=== PATIENT | female | born 1950 | race American Indian/Alaskan Native ===

== ENCOUNTER 2018-07-22 09:30 | Inpatient (IN) | payer MEDICARE ==
[2018-07-22 11:07] LABS: Basophils # (Auto) 0.1 K/mm3 (0.0-0.1); Basophils % (Auto) 0.8 % (0.0-1.8); Eosinophils # (Auto) 0.1 K/mm3 (0.0-0.4); Eosinophils % (Auto) 1.1 % (0.0-4.3); Hematocrit 41.3 % (30.3-42.9); Hemoglobin 13.9 gm/dl (10.1-14.3); Lymphocytes # (Auto) 1.4 K/mm3 (1.2-5.4); Lymphocytes % (Auto) 23.8 % (13.4-35.0); Mean Corpuscular HGB Conc 34 % (30-34); Mean Corpuscular Volume 95 fl (79-97); Monocytes # (Auto) 0.6 K/mm3 (0.0-0.8); Monocytes % (Auto) 10.6 % (0.0-7.3); Platelet Count 333 K/mm3 (140-440); Red Blood Count 4.37 M/mm3 (3.65-5.03); Red Cell Distribution Width 13.3 % (13.2-15.2)
--- NOTE | 2018-07-22 12:47 | Emergency Department Report ---
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 Symptoms exacerbated with exertion. Patient denies chest pain, calf tenderness, leg edema, recent travel, history of PE/DVT, cough, fever, nausea, vomiting, or diarrhea. Patient's primary care doctor is Dr. Jose Adler. She follows up every 3 months. She states her blood pressure is elevated sometimes she is not currently on medication. She denies any known history of kidney failure. She attempted to see her primary care doctor today but was diverted to the ER based on her symptoms. Patient states she will longer smokes cigarettes. We called Dr. Jose Adler's office and attempt to get previous creatinine values. They state that after medical record review could not find any evidence that the patient had been seen in their office previously. Severity scale (0 -10): 3 - Related Data Allergies Allergy/AdvReac Type Severity Reaction Status Date / Time No Known Allergies Allergy Unverified 07/22/18 09:33 ED Review of Systems ROS: Stated complaint: ABD PAIN Other details as noted in HPI Comment: All other systems reviewed and negative ED Past Medical Hx - Past Medical History Previous Medical History?: No Additional medical history: [place] - Surgical History Past Surgical History?: Yes Additional Surgical History: Lung surgery. Hysterectomy - Social History Smoking Status: Never Smoker Substance Use Type: None ED Physical Exam - General Limitations: No Limitations - Other Other exam information: General: No limitations, patient is alert in no acute distress Head exam: Atraumatic, normocephalic Eyes exam: Normal appearance, pupils equal reactive to light, extraocular movements intact ENT: Moist mucous membrane, normal oropharynx Neck exam: Normal inspection, full range of motion, no meningismus nontender Respiratory exam: Clear to auscultation bilateral, no wheezes, rales, crackles Cardiovascular: Normal rate and rhythm, normal heart sounds Abdomen: Soft, nondistended, and nontender, with normal bowel sounds, no rebound, or guarding Extremity: Full range of motion normal inspection no deformity, no calf tenderness or edema Back: Normal Inspection, full range of motion, no tenderness Neurologic: Alert, oriented x3, cranial nerves intact, no motor or sensory deficit Psychiatric: normal affect, normal mood Skin: Warm, dry, intact ED Course Vital Signs 07/22/18 10:19 Temperature 97.9 F Pulse Rate 79 Respiratory 20 Rate Blood Pressure 156/95 O2 Sat by Pulse 98 Oximetry - Consultations Consultation #1: 07/22/18 15:01 Case was discussed with Dr. Oates and recommended admission for further renal workup ED Medical Decision Making - Lab Data Result diagrams: 07/22/18 10:36 07/22/18 10:36 Lab Results 07/22/18 07/22/18 07/22/18 Range/Units 10:36 10:36 12:07 WBC 6.1 (4.5-11.0) K/mm3 RBC 4.37 (3.65-5.03) M/mm3 Hgb 13.9 (10.1-14.3) gm/dl Hct 41.3 (30.3-42.9) % MCV 95 (79-97) fl MCH 32 (28-32) pg MCHC 34 (30-34) % RDW 13.3 (13.2-15.2) % Plt Count 333 (140-440) K/mm3 Lymph % (Auto) 23.8 (13.4-35.0) % Wallace % (Auto) 10.6 H (0.0-7.3) % Eos % (Auto) 1.1 (0.0-4.3) % Baso % (Auto) 0.8 (0.0-1.8) % Lymph # 1.4 (1.2-5.4) K/mm3 Wallace # 0.6 (0.0-0.8) K/mm3 Eos # 0.1 (0.0-0.4) K/mm3 Baso # 0.1 (0.0-0.1) K/mm3 Seg Neutrophils % 63.7 (40.0-70.0) % Seg Neutrophils # 3.9 (1.8-7.7) K/mm3 D-Dimer 425.19 H (0-234) ng/mlDDU Sodium 141 (137-145) mmol/L Potassium 4.0 (3.6-5.0) mmol/L Chloride 99.6 (98-107) mmol/L Carbon Dioxide 25 (22-30) mmol/L Anion Gap 20 mmol/L BUN 21 H (7-17) mg/dL Creatinine 3.1 H (0.7-1.2) mg/dL Estimated GFR 18 ml/min BUN/Creatinine Ratio 7 % Glucose 136 H (65-100) mg/dL Calcium 9.0 (8.4-10.2) mg/dL Total Bilirubin 1.30 H (0.1-1.2) mg/dL AST 15 (5-40) units/L ALT 7 (7-56) units/L Alkaline Phosphatase 108 (35-129) units/L Total Protein 6.9 (6.3-8.2) g/dL Albumin 4.0 (3.9-5) g/dL Albumin/Globulin Ratio 1.4 % TSH (0.270-4.200) mlU/mL Free T4 (0.76-1.46) ng/dL Urine Color (Yellow) Urine Turbidity (Clear) Urine pH (5.0-7.0) Ur Specific [place] (1.003-1.030) Urine Protein (Negative) mg/dL Urine Glucose (UA) (Negative) mg/dL Urine Ketones (Negative) mg/dL Urine Blood (Negative) Urine Nitrite (Negative) Urine Bilirubin (Negative) Urine Urobilinogen (<2.0) mg/dL Ur Leukocyte Esterase (Negative) Urine WBC (Auto) (0.0-6.0) /HPF Urine RBC (Auto) (0.0-6.0) /HPF U Epithel Cells (Auto) (0-13.0) /HPF Urine Mucus /HPF 07/22/18 07/22/18 Range/Units 12:07 12:52 WBC (4.5-11.0) K/mm3 RBC (3.65-5.03) M/mm3 Hgb (10.1-14.3) gm/dl Hct (30.3-42.9) % MCV (79-97) fl MCH (28-32) pg MCHC (30-34) % RDW (13.2-15.2) % Plt Count (140-440) K/mm3 Lymph % (Auto) (13.4-35.0) % Wallace % (Auto) (0.0-7.3) % Eos % (Auto) (0.0-4.3) % Baso % (Auto) (0.0-1.8) % Lymph # (1.2-5.4) K/mm3 Wallace # (0.0-0.8) K/mm3 Eos # (0.0-0.4) K/mm3 Baso # (0.0-0.1) K/mm3 Seg Neutrophils % (40.0-70.0) % Seg Neutrophils # (1.8-7.7) K/mm3 D-Dimer (0-234) ng/mlDDU Sodium (137-145) mmol/L Potassium (3.6-5.0) mmol/L Chloride (98-107) mmol/L Carbon Dioxide (22-30) mmol/L Anion Gap mmol/L BUN (7-17) mg/dL Creatinine (0.7-1.2) mg/dL Estimated GFR ml/min BUN/Creatinine Ratio % Glucose (65-100) mg/dL Calcium (8.4-10.2) mg/dL Total Bilirubin (0.1-1.2) mg/dL AST (5-40) units/L ALT (7-56) units/L Alkaline Phosphatase (35-129) units/L Total Protein (6.3-8.2) g/dL Albumin (3.9-5) g/dL Albumin/Globulin Ratio % TSH 1.510 (0.270-4.200) mlU/mL Free T4 1.31 (0.76-1.46) ng/dL Urine Color Yellow (Yellow) Urine Turbidity Slightly-cloudy (Clear) Urine pH 5.0 (5.0-7.0) Ur Specific [place] 1.008 (1.003-1.030) Urine Protein 30 mg/dl (Negative) mg/dL Urine Glucose (UA) Neg (Negative) mg/dL Urine Ketones Neg (Negative) mg/dL Urine Blood Neg (Negative) Urine Nitrite Neg (Negative) Urine Bilirubin Neg (Negative) Urine Urobilinogen < 2.0 (<2.0) mg/dL Ur Leukocyte Esterase Sm (Negative) Urine WBC (Auto) 8.0 H (0.0-6.0) /HPF Urine RBC (Auto) 3.0 (0.0-6.0) /HPF U Epithel Cells (Auto) 7.0 (0-13.0) /HPF Urine Mucus Few /HPF - Radiology Data Radiology results: report reviewed cc: TAMAR BIRD MD Fluoro Time In Minutes: ROUTINE CHEST, TWO VIEWS: HISTORY: Short of breath. The trachea, heart, mediastinal contour, lung avila and bony thorax are unremarkable. IMPRESSION: Unremarkable chest x-ray. VQ scan low prob for PE - Medical Decision Making Case discussed with nephrology. Patient to be admitted for newly diagnosed renal insufficiency with unknown baseline creatinine. Patient presented with dyspnea on exertion and palpitations. No signs of tachycardia or hypoxia in the ED. VQ scan low probability with a unremarkable chest x-ray. Patient will be admitted to the hospitalist service for further workup - Differential Diagnosis PE, anxiety, emphysema, arrhythmia Critical Care Time: No Critical care attestation.: If time is entered above; I have spent that time in minutes in the direct care of this critically ill patient, excluding procedure time. ED Disposition Clinical Impression: Dyspnea on exertion, Renal insufficiency, Elevated blood pressure reading Disposition: OP ADMIT IP TO THIS HOSP Is pt being admited?: Yes Condition: Stable Time of Disposition: 15:03 (Dr. Crowder/hospitalist)
[2018-07-22 12:51] LABS: Free T4 (Free Thyroxine) 1.31 ng/dL (0.76-1.46)
[2018-07-22 13:09] LABS: Bilirubin,Urine NEG (Negative); Blood,Urine NEG (Negative); Color,Urine Yellow (Yellow); Mucus,Urine FEW /HPF; Urobilinogen,Urine < 2.0 mg/dL (<2.0)
--- NOTE | 2018-07-22 13:49 | XRay Report ---
ROUTINE CHEST, TWO VIEWS: HISTORY: Short of breath. The trachea, heart, mediastinal contour, lung avila and bony thorax are unremarkable. IMPRESSION: Unremarkable chest x-ray.
--- NOTE | 2018-07-22 14:09 | Nuclear Medicine Report ---
LUNG SCAN, VENTILATION AND PERFUSION: History: Intermittent shortness of breath. Technique: 5mci of Tc99m MAA was infused for the perfusion images. 15mci XE 133 gas was inhaled for the ventilatory images. Correlation is made with a chest x-ray dated 07/22/18. Findings: Inhalation of Xenon gas demonstrates a normal distribution of the activity throughout both lungs. The wash out phases show no focal retention of activity. After injection of Technetium 99m macroaggregated albumin gamma camera imaging of the lungs in multiple projections demonstrates normal pulmonary contours with a homogeneous distribution of activity. No focal areas of perfusion deficiency are identified. IMPRESSION: Low probability for pulmonary embolus.
[2018-07-22] MEDS ORDERED: SODIUM CHLORIDE FLUSH SYRINGE 10 ML IV PRN (16:04)
[2018-07-22] MEDS ORDERED: PROVENTIL IH PRN (16:04)
[2018-07-22] MEDS ORDERED: TYLENOL PO PRN (16:04)
[2018-07-22] MEDS ORDERED: ZOFRAN IV PRN (16:04)
--- NOTE | 2018-07-22 16:11 | History and Physical Report ---
History of Present Illness Chief complaint: My stomach hurts, I just feel sick History of present illness: 68 YO Female with HTN presents to ED for evaluation. Pt states that she has experienced intermittent dyspnea on exertion, chest palpitations, and abdominal discomfort over the past days. Pt acknowledges pain upon urination. Symptoms exacerbated with exertion. Patient denies fever, chills, chest pain, brbpr, pr oductive cough, recent ill contacts, unilateral leg swelling, calf tenderness, leg edema, prolonged travel/immobility, individual/family history of PE/DVT/Blood Clotting Disorder. Pt seen and evaluated in ED and found to have Acute Renal Failure, Urinary Tract Infection. Pt admitted to [facility] unit and initiated on IV antibiotic therapy. Patient's primary care doctor is Dr. Jose Adler. Past History Past Medical History: hypertension Past Surgical History: hysterectomy, Other (lung Lobectomy) Social history: single. denies: smoking, alcohol abuse, prescription drug abuse Family history: hypertension Medications and Allergies Allergies Allergy/AdvReac Type Severity Reaction Status Date / Time No Known Allergies Allergy Unverified 07/22/18 09:33 Active Meds: Active Medications Acetaminophen (Tylenol) 650 mg PO Q4H PRN PRN Reason: Pain MILD(1-3)/Fever >100.5/CHAVEZ Albuterol (Proventil) 2.5 mg IH Q4HRT PRN PRN Reason: Shortness Of Breath Sodium Chloride (Nacl 0.45% 1000 Ml) 1,000 mls @ 75 mls/hr IV DIRECT SHANEKA Ondansetron HCl (Zofran) 4 mg IV Q8H PRN PRN Reason: Nausea And Vomiting Sodium Chloride (Sodium Chloride Flush Syringe 10 Ml) 10 ml IV PRN PRN PRN Reason: LINE FLUSH Sodium Chloride (Sodium Chloride Flush Syringe 10 Ml) 10 ml IV BID SHANEKA Review of Systems Constitutional: no weight loss, no weight gain, no fever, no chills Ears, nose, mouth and throat: no ear pain, no ear discharge, no tinnitis, no decreased hearing Breasts: no change in shape, no swelling, no mass Cardiovascular: chest pain Respiratory: no cough, no cough with sputum, no excessive sputum, no hemoptysis Gastrointestinal: abdominal pain, nausea, no constipation, no change in bowel habits, no hematemesis Genitourinary Female: dysuria, urinary frequency, urgency, no pelvic pain, no flank pain Rectal: no pain, no incontinence, no bleeding Musculoskeletal: no neck pain, no shooting arm pain, no arm numbness/tingling, no low back pain, no shooting leg pain Integumentary: no rash, no pruritis, no redness, no sores, no wounds Neurological: no paralysis, no weakness, no parathesias, no numbness, no tingling Psychiatric: no anxiety, no memory loss, no change in sleep habits, no sleep dis turbances, no insomnia, no hypersomnia Endocrine: no cold intolerance, no heat intolerance, no polyphagia, no excessive thirst, no polydipsia, no polyuria, no nocturia Hematologic/Lymphatic: no easy bruising, no easy bleeding, no lymphadenopathy, no lymphedema Allergic/Immunologic: no urticaria, no allergic rhinitis, no wheezing, no persistent infections, no anaphylaxis, no angioedema Exam - Constitutional Vitals: Temp Pulse Resp BP Pulse Ox 97.9 F 87 18 145/96 98 07/22/18 10:19 07/22/18 16:08 07/22/18 16:08 07/22/18 16:08 07/22/18 16:08 General appearance: Present: mild distress - EENT Eyes: Present: PERRL ENT: hearing intact, clear oral mucosa - Neck Neck: Present: supple, normal ROM - Respiratory Respiratory effort: normal Respiratory: bilateral: CTA - Cardiovascular Heart Sounds: Present: S1 & S2. Absent: rub, click - Extremities Extremities: pulses symmetrical, No edema Peripheral Pulses: within normal limits - Abdominal General gastrointestinal: Present: soft, non-tender, non-distended, normal bowel sounds Localized gastrointestinal: tender: suprapubic Female genitourinary: Present: normal - Integumentary Integumentary: Present: clear, warm, dry - Musculoskeletal Musculoskeletal: gait normal, strength equal bilaterally - Psychiatric Psychiatric: appropriate mood/affect, intact judgment & insight - Neurologic Neurologic: CNII-XII intact, moves all extremities Results - Labs CBC & Chem 7: 07/22/18 10:36 07/22/18 10:36 Labs: Abnormal lab results 07/22/18 07/22/18 07/22/18 Range/Units 10:36 10:36 12:07 [place] % (Auto) 10.6 H (0.0-7.3) % D-Dimer 425.19 H (0-234) ng/mlDDU BUN 21 H (7-17) mg/dL Creatinine 3.1 H (0.7-1.2) mg/dL Glucose 136 H (65-100) mg/dL Total Bilirubin 1.30 H (0.1-1.2) mg/dL Urine WBC (Auto) (0.0-6.0) /HPF 07/22/18 Range/Units 12:52 [place] % (Auto) (0.0-7.3) % D-Dimer (0-234) ng/mlDDU BUN (7-17) mg/dL Creatinine (0.7-1.2) mg/dL Glucose (65-100) mg/dL Total Bilirubin (0.1-1.2) mg/dL Urine WBC (Auto) 8.0 H (0.0-6.0) /HPF Assessment and Plan - Patient Problems (1) ARF (acute renal failure) with tubular necrosis Current Visit: Yes Status: Acute Plan to address problem: IVF resuscitation, monitor uop q shift, hepatitis panel, urine electrolytes, Renal ultrasound. (2) UTI (urinary tract infection) Current Visit: Yes Status: Acute Qualifiers: Encounter type: initial encounter Plan to address problem: IV antibiotic therapy, cbc, urinalysis, cmp, (3) DVT prophylaxis Current Visit: Yes Status: Acute Plan to address problem: SCD to BLE while in bed.
--- NOTE | 2018-07-22 16:28 | Consultation ---
History of Present Illness - Reason for Consult Consult date: 07/22/18 acute renal failure - History of Present Illness The patient is a 68 YO Female without any significant medical history who p resented to [facility] for evaluation intermittent dyspnea on exertion for the past few days. Patient is a very vague historian. She has sob mostly on exertion and associated with palpitations. For the past 4-5 days her appetite has been decreased with poor PO intake. Denies any fever, chills, cp, N, V, D, abd pain, dysuria, hematuria, leg swelling, hemoptysis, cough, prolonged travel/immobility, dizziness or syncope. Her creatinine was around 0.8 in Feb 2018 and today her creatinine is 3.1. Patient was admitted for evalaution of Acute kidney injury. Nephrology was consulted for further evaluation. Medications and Allergies Allergies Allergy/AdvReac Type Severity Reaction Status Date / Time No Known Allergies Allergy Unverified 07/22/18 09:33 Active Meds: Active Medications Acetaminophen (Tylenol) 650 mg PO Q4H PRN PRN Reason: Pain MILD(1-3)/Fever >100.5/CHAVEZ Albuterol (Proventil) 2.5 mg IH Q4HRT PRN PRN Reason: Shortness Of Breath Sodium Chloride (Nacl 0.45% 1000 Ml) 1,000 mls @ 75 mls/hr IV DIRECT SHANEKA Ceftriaxone Sodium (Rocephin/Ns 1 Gm/50 Ml) 1 gm in 50 mls @ 100 mls/hr IV Q24HR SHANEKA; Protocol Ondansetron HCl (Zofran) 4 mg IV Q8H PRN PRN Reason: Nausea And Vomiting Sodium Chloride (Sodium Chloride Flush Syringe 10 Ml) 10 ml IV PRN PRN PRN Reason: LINE FLUSH Sodium Chloride (Sodium Chloride Flush Syringe 10 Ml) 10 ml IV BID SHANEKA Review of Systems Constitutional: poor appetite, no weight loss, no weight gain, no fever, no chills, no weakness Breasts: deferred Cardiovascular: palpitations, shortness of breath, dyspnea on exertion, decreased exercise tolerance, no chest pain, no orthopnea, no edema, no syncope, no lightheadedness, no paroxysmal nocturnal dyspnea, no claudication, no leg edema Respiratory: shortness of breath, dyspnea on exertion, no cough, no cough with sputum, no hemoptysis, no sleep apnea, no home oxygen Gastrointestinal: no abdominal pain, no nausea, no vomiting, no diarrhea, no hematemesis, no melena Genitourinary Female: no dysuria, no hematuria Rectal: no bleeding Musculoskeletal: no neck stiffness, no neck pain, no hot joints, no muscle weakness Integumentary: no rash, no wounds, no jaundice Neurological: no head injury, no paralysis, no weakness, no seizures, no syncope, no change in speech, no change in mentation, no confusion Exam - Vital Signs Vital signs: Vital Signs Temp Pulse Resp BP Pulse Ox 97.9 F 79 20 156/95 98 07/22/18 10:19 07/22/18 10:19 07/22/18 10:19 07/22/18 10:19 07/22/18 10:19 - General Appearance General appearance: well-developed, well-nourished, appears stated age, other (not in distress) EENT: ATNC, PERRL, mucous membranes dry, hearing intact, vision intact Neck: Present: neck supple, trachea midline Respiratory: Clear to Ascultation Heart: regular, S1S2, no murmurs Gastrointestinal: Present: normoactive bowel sounds. Absent: tenderness, distended Integumentary: no rash, warm and dry Neurologic: no focal deficit, no asterixis, alert and oriented x3 Musculoskeletal: Present: other (no edema) Results - Lab Results 07/23/18 05:06 07/23/18 05:06 Most recent lab results Calcium 9.0 mg/dL (8.4-10.2) 07/22/18 10:36 Assessment and Plan 1. Acute kidney injury: Suspected vasomotor / hemodynamic BENNY. Started on IV fluids. Urine studies and Renal US. Monitor renal function. Avoid nephrotoxic agents. Meds dosage based on GFR. 2. Shortness of breath: Unclear etiology. CXR and V/Q scan were negative. Will check BNP. 3. Suspected UTI.
[2018-07-22 16:42] LABS: Albumin 4.2 g/dL (3.9-5); Bilirubin,Direct 0.2 mg/dL (0-0.2)
[2018-07-22 16:57] LABS: Alanine Aminotransferase < 5 units/L (7-56)
--- NOTE | 2018-07-22 21:25 | XRay Report ---
PROCEDURE: XR ABDOMEN 2V TECHNIQUE: Abdominal series, including supine and upright AP views. HISTORY: ab pain COMPARISONS: None . FINDINGS: Bowel gas pattern: Nonobstructive . Masses or calcifications: None . Bony structures: No significant abnormality . Pneumoperitoneum: None . Other: No significant findings . IMPRESSION: No acute abnormality. This document is electronically signed by Marc Villasenor MD., July 22 2018 09:22:55 PM ET
[2018-07-22] MEDS: SODIUM CHLORIDE FLUSH SYRINGE 10 ML IV SCH (21:47)
[2018-07-23 05:43] LABS: Basophils # (Auto) 0.1 K/mm3 (0.0-0.1); Basophils % (Auto) 0.9 % (0.0-1.8); Eosinophils # (Auto) 0.1 K/mm3 (0.0-0.4); Eosinophils % (Auto) 1.9 % (0.0-4.3); Hematocrit 39.1 % (30.3-42.9); Hemoglobin 13.3 gm/dl (10.1-14.3); Lymphocytes % (Auto) 34.5 % (13.4-35.0); Mean Corpuscular HGB Conc 34 % (30-34); Mean Corpuscular Volume 93 fl (79-97); Monocytes # (Auto) 0.7 K/mm3 (0.0-0.8); Monocytes % (Auto) 12.4 % (0.0-7.3); Platelet Count 300 K/mm3 (140-440); Red Cell Distribution Width 13.8 % (13.2-15.2)
[2018-07-23 05:51] LABS: Calcium 8.7 mg/dL (8.4-10.2)
--- NOTE | 2018-07-23 09:14 | Progress Note ---
Assessment and Plan 1. Acute kidney injury: Suspected vasomotor / hemodynamic BENNY. Continue IV fluids. Urine studies and Renal US. Monitor renal function. Avoid nephrotoxic agents. Meds dosage based on GFR. 2. Shortness of breath: Unclear etiology. CXR and V/Q scan were negative. Elevated BNP. Echo ordered. 3. Suspected UTI. Subjective Date of service: 07/23/18 Interval history: Patient is doing ok. Objective - Vital Signs Vital signs: Vital Signs - 12hr 07/23/18 02:30 Temperature 98.1 F Pulse Rate 78 Respiratory 20 Rate Blood Pressure 129/83 O2 Sat by Pulse 99 Oximetry - General Appearance General appearance: well-developed, well-nourished, appears stated age, other (not in distress) EENT: ATNC, PERRL, mucous membranes dry, hearing intact, vision intact Neck: supple Respiratory: Present: Clear to Ascultation Cardiology: regular, S1S2, no murmurs Gastrointestinal: normoactive bowel sounds, no tenderness, no distended Integumentary: no rash, warm and dry Neurologic: no focal deficit, no asterixis, alert and oriented x3 Musculoskeletal: other (no edema) Psychiatric: mood/affect appropriate, cooperative - Lab 07/23/18 05:06 07/23/18 05:06 Most recent lab results Calcium 8.7 mg/dL (8.4-10.2) 07/23/18 05:06 Medications & Allergies - Medications Allergies/Adverse Reactions: Allergies No Known Allergies Allergy (Unverified 07/22/18 09:33) Active Medications: Generic Name Dose Route Start Last Admin Trade Name Freq PRN Reason Stop Dose Admin Acetaminophen 650 mg 07/22/18 16:04 Tylenol PO Q4H PRN Pain MILD(1-3)/Fever >100.5/CHAVEZ Albuterol 2.5 mg 07/22/18 16:04 Proventil IH Q4HRT PRN Shortness Of Breath Sodium Chloride 1,000 mls @ 75 mls/hr 07/22/18 17:00 Nacl 0.45% 1000 Ml IV DIRECT SHANEKA Ceftriaxone Sodium 1 gm in 50 mls @ 100 mls/hr 07/23/18 10:00 Rocephin/Ns 1 Gm/50 Ml IV Q24HR SHANEKA Protocol Ondansetron HCl 4 mg 07/22/18 16:04 Zofran IV Q8H PRN Nausea And Vomiting Sodium Chloride 10 ml 07/22/18 16:04 Sodium Chloride Flush Syringe 10 Ml IV PRN PRN LINE FLUSH Sodium Chloride 10 ml 07/22/18 22:00 07/22/18 21:47 Sodium Chloride Flush Syringe 10 Ml IV 10 ml BID SHANEKA Administration
[2018-07-23] MEDS: ROCEPHIN/NS 1 GM/50 ML 1 GM/50 ML BAG IV SCH (09:19)
[2018-07-23] MEDS: SODIUM CHLORIDE FLUSH SYRINGE 10 ML IV SCH ×2 (09:21→22:09)
[2018-07-23] MEDS: NACL 0.45% 1000 ML 1,000 ML IV SCH (09:21)
--- NOTE | 2018-07-23 10:00 | Ultrasound Report ---
PROCEDURE: US RENAL BILAT TECHNIQUE: Transverse longitudinal sonograms obtained with thomas scale sonography. HISTORY: renal failure COMPARISONS: None FINDINGS: Right kidney measures 10.2 x 5.5 x 5.6 cm. Cortex 1.7 cm. Increased cortical echogenicity. No calculu s. No hydronephrosis. Left kidney measures 11.2 x 5.3 x 5.1 cm. Cortex 1.5 cm. Increased cortical echogenicity. No calculus . No hydronephrosis. Bladder appears unremarkable. IMPRESSION: Normal-sized kidneys without hydronephrosis. Increased cortical echogenicity which can be seen in medical renal disease.. This document is electronically signed by Sigifredo Thapa MD., July 23 2018 09:58:26 AM ET
--- NOTE | 2018-07-23 12:40 | Progress Note ---
Assessment and Plan / ARF (acute renal failure) with tubular necrosis/vasomotor nephropathy cont IVF resuscitation, monitor uop q shift, hepatitis panel, urine electrolytes, Renal ultrasound. Her creatinine was around 0.8 in Feb 2018 and now her creatinine ~ 3.0 / UTI (urinary tract infection) IV antibiotic therapy, follow Cx /HTN, cont to monitor, / DVT prophylaxis SCD to BLE while in bed. Subjective Date of service: 07/23/18 Interval history: Pt seen and examined denies any abdominal pain no SOB, tolerating diet Objective - Constitutional Vitals: Vital Signs - 12hr 07/23/18 07/23/18 02:30 08:32 Temperature 98.1 F 98.3 F Pulse Rate 78 91 H Respiratory 20 18 Rate Blood Pressure 129/83 134/79 O2 Sat by Pulse 99 97 Oximetry General appearance: Present: no acute distress, well-nourished - EENT Eyes: PERRL, EOM intact ENT: hearing intact, clear oral mucosa Ears: bilateral: normal - Neck Neck: supple, normal ROM - Respiratory Respiratory effort: normal Respiratory: bilateral: CTA - Cardiovascular Rhythm: regular Heart Sounds: Present: S1 & S2. Absent: gallop, rub Extremities: pulses intact, No edema, normal color, Full ROM - Gastrointestinal General gastrointestinal: Present: soft, non-tender, non-distended, normal bowel sounds - Integumentary Integumentary: clear, warm, dry - Musculoskeletal Musculoskeletal: 1, strength equal bilaterally - Neurologic Neurologic: moves all extremities - Psychiatric Psychiatric: memory intact, appropriate mood/affect, intact judgment & insight - Labs CBC & Chem 7: 07/23/18 05:06 07/24/18 06:29 Labs: Abnormal lab results 07/22/18 07/22/18 07/23/18 Range/Units 12:52 16:14 05:06 [place] % (Auto) 12.4 H (0.0-7.3) % BUN (7-17) mg/dL Creatinine (0.7-1.2) mg/dL Glucose (65-100) mg/dL AST < 5 L (5-40) units/L ALT < 5 L (7-56) units/L NT-Pro-B Natriuret Pep (0-900) pg/mL Urine WBC (Auto) 8.0 H (0.0-6.0) /HPF 07/23/18 Range/Units 05:06 [place] % (Auto) (0.0-7.3) % BUN 23 H (7-17) mg/dL Creatinine 3.0 H (0.7-1.2) mg/dL Glucose 123 H (65-100) mg/dL AST (5-40) units/L ALT (7-56) units/L NT-Pro-B Natriuret Pep 28180 H (0-900) pg/mL Urine WBC (Auto) (0.0-6.0) /HPF
[2018-07-23 17:44] LABS: Creatinine,Urine 114.2 mg/dL (0.1-20.0)
[2018-07-24] MEDS: NACL 0.45% 1000 ML 1,000 ML IV SCH (06:18)
[2018-07-24 07:35] LABS: Calcium 8.5 mg/dL (8.4-10.2)
--- NOTE | 2018-07-24 08:25 | Progress Note ---
Assessment and Plan 1. Acute kidney injury: Suspected vasomotor / hemodynamic BENNY. Continue IV fluids. Creatinine level is slightly better today. Monitor renal function. Avoid nephrotoxic agents. Meds dosage based on GFR. 2. Shortness of breath: Unclear etiology. CXR and V/Q scan were negative. Elevated BNP. Echo pending. 3. Suspected UTI. Subjective Date of service: 07/24/18 Interval history: Patient is doing ok. Objective - Vital Signs Vital signs: Vital Signs - 12hr 07/23/18 07/23/18 07/24/18 19:32 20:09 01:34 Temperature 98.9 F 98.3 F Pulse Rate 82 90 Respiratory 20 20 Rate Blood Pressure 144/79 145/83 O2 Sat by Pulse 97 99 96 Oximetry - General Appearance General appearance: well-developed, well-nourished, appears stated age, other (not in distress) EENT: ATNC, PERRL, mucous membranes moist, hearing intact, vision intact Neck: supple Respiratory: Present: Clear to Ascultation Cardiology: regular, S1S2, no murmurs Gastrointestinal: normoactive bowel sounds, no tenderness, no distended Integumentary: no rash, warm and dry Neurologic: no focal deficit, no asterixis, alert and oriented x3 Musculoskeletal: other (no edema) - Lab 07/23/18 05:06 07/24/18 06:29 Most recent lab results Calcium 8.5 mg/dL (8.4-10.2) 07/24/18 06:29 Phosphorus 4.10 mg/dL (2.5-4.5) 07/24/18 06:29 Magnesium 1.80 mg/dL (1.7-2.3) 07/24/18 06:29 Urine Creatinine 114.2 mg/dL (0.1-20.0) H 07/23/18 17:24 Urine Sodium 35 mmol/L 07/23/18 17:24 Medications & Allergies - Medications Allergies/Adverse Reactions: Allergies No Known Allergies Allergy (Unverified 07/22/18 09:33) Active Medications: Generic Name Dose Route Start Last Admin Trade Name Freq PRN Reason Stop Dose Admin Acetaminophen 650 mg 07/22/18 16:04 Tylenol PO Q4H PRN Pain MILD(1-3)/Fever >100.5/CHAVEZ Albuterol 2.5 mg 07/22/18 16:04 Proventil IH Q4HRT PRN Shortness Of Breath Sodium Chloride 1,000 mls @ 75 mls/hr 07/22/18 17:00 07/24/18 06:18 Nacl 0.45% 1000 Ml IV 75 mls/hr DIRECT SHANEKA Administration Ceftriaxone Sodium 1 gm in 50 mls @ 100 mls/hr 07/23/18 10:00 07/23/18 09:19 Rocephin/Ns 1 Gm/50 Ml IV 100 mls/hr Q24HR SHANEKA Administration Protocol Ondansetron HCl 4 mg 07/22/18 16:04 Zofran IV Q8H PRN Nausea And Vomiting Pneumococcal Polyvalent Vaccine 0.5 ml 07/24/18 12:00 Pneumovax 23 IM 07/24/18 12:01 .ONCE ONE Sodium Chloride 10 ml 07/22/18 16:04 Sodium Chloride Flush Syringe 10 Ml IV PRN PRN LINE FLUSH Sodium Chloride 10 ml 07/22/18 22:00 07/23/18 22:09 Sodium Chloride Flush Syringe 10 Ml IV 10 ml BID SHANEKA Administration
--- NOTE | 2018-07-24 11:43 | Progress Note ---
Assessment and Plan / ARF (acute renal failure) with tubular necrosis/vasomotor nephropathy cont IVF resuscitation, Renal ultrasound showed medical renal disease Her creatinine was around 0.8 in Feb 2018 and now her creatinine ~ 3.0 / UTI (urinary tract infection) IV antibiotic therapy /HTN, cont to monitor, stable w/o meds /Elevated BNP, will follow 2d echo result / DVT prophylaxis SCD to BLE while in bed. Subjective Date of service: 07/24/18 Interval history: Pt seen and examined denies any abdominal pain no SOB, tolerating diet Objective - Exam Narrative Exam: General appearance: Present: no acute distress, well-nourished - EENT Eyes: PERRL, EOM intact ENT: hearing intact, clear oral mucosa Ears: bilateral: normal - Neck Neck: supple, normal ROM - Respiratory Respiratory effort: normal Respiratory: bilateral: CTA - Cardiovascular Rhythm: regular Heart Sounds: Present: S1 & S2. Absent: gallop, rub Extremities: pulses intact, No edema, normal color, Full ROM - Gastrointestinal General gastrointestinal: Present: soft, non-tender, non-distended, normal bowel sounds - Integumentary Integumentary: clear, warm, dry - Musculoskeletal Musculoskeletal: 1, strength equal bilaterally - Neurologic Neurologic: moves all extremities - Psychiatric Psychiatric: memory intact, appropriate mood/affect, intact judgment & insight - Constitutional Vitals: Vital Signs - 12hr 07/24/18 07/24/18 07/24/18 01:34 07:52 09:26 Temperature 98.3 F 98.7 F Pulse Rate 90 75 Respiratory 20 18 Rate Blood Pressure 145/83 138/79 O2 Sat by Pulse 96 95 96 Oximetry - Labs CBC & Chem 7: 07/23/18 05:06 07/24/18 06:29 Labs: Abnormal lab results 07/23/18 07/24/18 Range/Units 17:24 06:29 BUN 27 H (7-17) mg/dL Creatinine 2.7 H (0.7-1.2) mg/dL Glucose 129 H (65-100) mg/dL Urine Creatinine 114.2 H (0.1-20.0) mg/dL
[2018-07-24] MEDS ORDERED: PNEUMOVAX 23 IM ONE (12:00)
[2018-07-24] MEDS ORDERED: AFLURIA QUAD 2018-2019 SYRINGE IM ONE (12:00)
[2018-07-24] MEDS: SODIUM CHLORIDE FLUSH SYRINGE 10 ML IV SCH ×2 (13:21→22:40)
[2018-07-24] MEDS: ROCEPHIN/NS 1 GM/50 ML 1 GM/50 ML BAG IV SCH (13:21)
[2018-07-25 05:04] LABS: Calcium 8.4 mg/dL (8.4-10.2)
[2018-07-25] MEDS: NACL 0.45% 1000 ML 1,000 ML IV SCH ×2 (05:49→05:51)
--- NOTE | 2018-07-25 09:38 | Progress Note ---
Assessment and Plan 1. Acute kidney injury: Suspected vasomotor / hemodynamic BENNY. Continue IV fluids. Creatinine level is improving. Monitor renal function. Avoid nephrotoxic agents. Meds dosage based on GFR. 2. Systolic CHF: Followed by Cards. 3. Suspected UTI. Subjective Date of service: 07/25/18 Interval history: Patient is doing ok. Objective - Vital Signs Vital signs: Vital Signs - 12hr 07/25/18 07/25/18 02:29 07:30 Temperature 98.3 F 99.2 F Pulse Rate 75 81 Respiratory 18 18 Rate Blood Pressure 141/84 134/71 O2 Sat by Pulse 96 96 Oximetry - General Appearance General appearance: well-developed, well-nourished, appears stated age, other (not in distress) EENT: ATNC, PERRL Neck: supple Respiratory: Present: Clear to Ascultation Cardiology: regular, S1S2, no murmurs Gastrointestinal: normoactive bowel sounds, no tenderness, no distended Integumentary: no rash, warm and dry Neurologic: no focal deficit, no asterixis, alert and oriented x3 Musculoskeletal: other (no edema) Psychiatric: cooperative - Lab 07/23/18 05:06 07/25/18 03:50 Most recent lab results Calcium 8.4 mg/dL (8.4-10.2) 07/25/18 03:50 Phosphorus 4.10 mg/dL (2.5-4.5) 07/24/18 06:29 Magnesium 1.80 mg/dL (1.7-2.3) 07/24/18 06:29 Urine Creatinine 114.2 mg/dL (0.1-20.0) H 07/23/18 17:24 Urine Sodium 35 mmol/L 07/23/18 17:24 Medications & Allergies - Medications Allergies/Adverse Reactions: Allergies No Known Allergies Allergy (Unverified 07/22/18 09:33) Home Medications: Home Medications Medication Instructions Recorded Confirmed Last Taken Type Simvastatin [Zocor] 20 mg PO QHS 07/25/18 07/25/18 Unknown History Active Medications: Generic Name Dose Route Start Last Admin Trade Name Freq PRN Reason Stop Dose Admin Acetaminophen 650 mg 07/22/18 16:04 Tylenol PO Q4H PRN Pain MILD(1-3)/Fever >100.5/CHAVEZ Albuterol 2.5 mg 07/22/18 16:04 Proventil IH Q4HRT PRN Shortness Of Breath Sodium Chloride 1,000 mls @ 75 mls/hr 07/22/18 17:00 07/25/18 05:51 Nacl 0.45% 1000 Ml IV 75 mls/hr DIRECT SHANEKA Administration Ceftriaxone Sodium 1 gm in 50 mls @ 100 mls/hr 07/25/18 10:00 Rocephin/Ns 1 Gm/50 Ml IV Q24HR SHANEKA Protocol Ondansetron HCl 4 mg 07/22/18 16:04 Zofran IV Q8H PRN Nausea And Vomiting Sodium Chloride 10 ml 07/22/18 16:04 Sodium Chloride Flush Syringe 10 Ml IV PRN PRN LINE FLUSH Sodium Chloride 10 ml 07/22/18 22:00 07/24/18 22:40 Sodium Chloride Flush Syringe 10 Ml IV 10 ml BID SHANEKA Administration
[2018-07-25] MEDS: SODIUM CHLORIDE FLUSH SYRINGE 10 ML IV SCH ×2 (09:58→21:34)
[2018-07-25] MEDS ORDERED: ROCEPHIN/NS 1 GM/50 ML 1 GM/50 ML BAG IV SCH (10:00)
--- NOTE | 2018-07-25 15:26 | Consultation ---
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 She states that she thought she had food poisoning. She has subsequently been diagnosed with BENNY and UTI. Pro-BNP was found to be elevated and thus echocardiogram was obtained. Echo showed EF 15-20%, LV mod dilated, mild LVH, LA mildly dilated, mod MR, mild TR and thus cardiology has been consulted. Pt denies any prior cardiac issues, including CAD, AMI or HF. No reported prior cardiac evaluation. 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 denies: smoking, alcohol abuse, prescription drug abuse Family history: hypertension Medications and Allergies Allergies Allergy/AdvReac Type Severity Reaction Status Date / Time No Known Allergies Allergy Unverified 07/22/18 09:33 Home Medications Medication Instructions Recorded Confirmed Last Taken Type Simvastatin [Zocor] 20 mg PO QHS 07/25/18 07/25/18 Unknown History Active Meds: Active Medications Acetaminophen (Tylenol) 650 mg PO Q4H PRN PRN Reason: Pain MILD(1-3)/Fever >100.5/CHAVEZ Albuterol (Proventil) 2.5 mg IH Q4HRT PRN PRN Reason: Shortness Of Breath Aspirin (Halfprin Ec) 81 mg PO QDAY SHANEKA Atorvastatin Calcium (Lipitor) 40 mg PO QHS [facility] Sodium Chloride (Nacl 0.45% 1000 Ml) 1,000 mls @ 75 mls/hr IV DIRECT SHANEKA Last Admin: 07/25/18 05:51 Dose: 75 mls/hr Documented by: Ceftriaxone Sodium (Rocephin/Ns 1 Gm/50 Ml) 1 gm in 50 mls @ 100 mls/hr IV Q24HR SHANEKA; Protocol Last Admin: 07/25/18 09:57 Dose: 100 mls/hr Documented by: Ondansetron HCl (Zofran) 4 mg IV Q8H PRN PRN Reason: Nausea And Vomiting Sodium Chloride (Sodium Chloride Flush Syringe 10 Ml) 10 ml IV PRN PRN PRN Reason: LINE FLUSH Sodium Chloride (Sodium Chloride Flush Syringe 10 Ml) 10 ml IV BID SHANEKA Last Admin: 07/25/18 09:58 Dose: 10 ml Documented by: Review of Systems Constitutional: no weight loss, no weight gain, no fever, no chills, no sweats Ears, nose, mouth and throat: no ear pain, no nose pain, no sinus pressure, no sinus pain Cardiovascular: orthopnea (sometimes ), palpitations, no chest pain, no edema, no syncope, no lightheadedness Respiratory: no cough, no congestion, no wheezing, no pain on inspiration Gastrointestinal: nausea, diarrhea, no abdominal pain, no vomiting, no constipation, no change in bowel habits Genitourinary Female: no pelvic pain, no flank pain, no dysuria, no urinary frequency, no urgency Musculoskeletal: no neck stiffness, no neck pain, no shooting arm pain, no arm numbness/tingling, no low back pain, no shooting leg pain Integumentary: no rash, no pruritis, no redness, no sores, no wounds Neurological: no head injury, no paralysis, no weakness, no parathesias, no numbness, no tingling, no seizures, no syncope Psychiatric: no anxiety Endocrine: no cold intolerance, no heat intolerance Hematologic/Lymphatic: no easy bruising, no easy bleeding Allergic/Immunologic: no urticaria, no wheezing Physical Examination Vital Signs Temp Pulse Resp BP Pulse Ox 97.9 F 79 20 156/95 98 07/22/18 10:19 07/22/18 10:19 07/22/18 10:19 07/22/18 10:19 07/22/18 10:19 General appearance: no acute distress HEENT: Positive: PERRL, Normocephaly, Mucus Membranes Moist Neck: Positive: neck supple, trachea midline Cardiac: Positive: Reg Rate and Rhythm, S1/S2 Lungs: Positive: clear to auscultation Neuro: Positive: Grossly Intact Abdomen: Positive: Soft. Negative: Tender Skin: Negative: Rash, Wound Musculoskeletal: No Pain Extremities: Absent: edema Results 07/23/18 05:06 07/25/18 03:50 Comprehensive Metabolic Panel 07/25/18 Range/Units 03:50 Sodium 141 (137-145) mmol/L Potassium 4.0 (3.6-5.0) mmol/L Chloride 101.7 (98-107) mmol/L Carbon Dioxide 25 (22-30) mmol/L BUN 24 H (7-17) mg/dL Creatinine 2.5 H (0.7-1.2) mg/dL Glucose 127 H (65-100) mg/dL Calcium 8.4 (8.4-10.2) mg/dL - Imaging and Cardiology Echo: report reviewed ( EF 15-20%, LV mod dilated, mild LVH, LA mildly dilated, mod MR, mild TR) EKG: report reviewed, image reviewed EKG interpretations - Telemetry EKG Rhythm: Sinus Rhythm - EKG Sinus rhythms and dysrhythmias: sinus rhythm Repolarization changes or abnormalities: ST or T wave suggestive of ischemia Assessment and Plan Initiate GDMT as tolerated. No ACEI/ARB at this time in setting of renal failure. Plan for lexiscan MPI stress test in AM to r/o ischemic CMP. Renal function precludes heart catheterization at this time. The patient has been seen in conjunction with Dr. Dietz who agrees with the assessment and plan of care. - Patient Problems (1) Cardiomyopathy Current Visit: Yes Status: Chronic (2) Renal failure Current Visit: Yes Status: Acute (3) UTI (urinary tract infection) Current Visit: Yes Status: Acute Qualifiers: Encounter type: initial encounter (4) History of pneumonectomy Current Visit: Yes Status: Chronic
--- NOTE | 2018-07-25 15:45 | Progress Note ---
Assessment and Plan / New onset systolic HF with Ef ~ 15% - consulted cardiology, - No ACEI or diuretics for BENNY - cardiology consulted, plan for stress test tomorrow - Renal function precludes heart catheterization at this time / ARF (acute renal failure) with tubular necrosis/vasomotor nephropathy s/p IVF resuscitation, Renal ultrasound showed medical renal disease Her creatinine was around 0.8 in Feb 2018 and her creatinine improving / UTI (urinary tract infection) cont IV antibiotic therapy, urine cx was not obtained on admission /HTN, BP was mildly elevated on admission - cont to monitor, stable w/o meds / DVT prophylaxis SCD to BLE while in bed. Brief history: The patient is a 68 YO Female without any significant medical history who presented to [facility] ED for evaluation intermittent dyspnea on exertion for the past few days. Her creatinine was around 0.8 in Feb 2018 and was 3.1 on admission. Patient was admitted for evalaution of Acute kidney injury. Also noted elevated BNP. 2d echo showed Ef 15-20%. Planned for stress test tomorrow. Subjective Date of service: 07/25/18 Interval history: Pt seen and examined denies any abdominal pain no SOB, tolerating diet Objective - Exam Narrative Exam: General appearance: Present: no acute distress, well-nourished - EENT Eyes: PERRL, EOM intact ENT: hearing intact, clear oral mucosa Ears: bilateral: normal - Neck Neck: supple, normal ROM - Respiratory Respiratory effort: normal Respiratory: bilateral: CTA - Cardiovascular Rhythm: regular Heart Sounds: Present: S1 & S2. Absent: gallop, rub Extremities: pulses intact, No edema, normal color, Full ROM - Gastrointestinal General gastrointestinal: Present: soft, non-tender, non-distended, normal bowel sounds - Integumentary Integumentary: clear, warm, dry - Musculoskeletal Musculoskeletal: 1, strength equal bilaterally - Neurologic Neurologic: moves all extremities - Psychiatric Psychiatric: memory intact, appropriate mood/affect, intact judgment & insight - Constitutional Vitals: Vital Signs - 12hr 07/25/18 07/25/18 07:30 13:49 Temperature 99.2 F 98.0 F Pulse Rate 81 88 Respiratory 18 18 Rate Blood Pressure 134/71 124/95 O2 Sat by Pulse 96 99 Oximetry - Labs CBC & Chem 7: 07/23/18 05:06 07/25/18 03:50 Labs: Abnormal lab results 07/25/18 Range/Units 03:50 BUN 24 H (7-17) mg/dL Creatinine 2.5 H (0.7-1.2) mg/dL Glucose 127 H (65-100) mg/dL
[2018-07-25] MEDS: HALFPRIN EC PO SCH (18:03)
[2018-07-25] MEDS: COREG PO SCH (21:33)
[2018-07-26 06:09] LABS: Calcium 8.7 mg/dL (8.4-10.2)
[2018-07-26 06:12] LABS: Creatine Kinase MB 2.5 ng/mL (0.0-4.0)
[2018-07-26] MEDS ORDERED: LEXISCAN IV ONE (08:25)
--- NOTE | 2018-07-26 09:41 | Progress Note ---
Assessment and Plan 1. Acute kidney injury: Suspected vasomotor / hemodynamic BENNY. Continue IV fluids. Creatinine level is improving. Monitor renal function. Avoid nephrotoxic agents. Meds dosage based on GFR. 2. FEN: Replete K. 3. Systolic CHF: Followed by Cards. Stress test. 4. Suspected UTI. 5. Newly diagnosed DM type 2. Subjective Date of service: 07/26/18 Interval history: Patient is doing ok. Objective - Vital Signs Vital signs: Vital Signs - 12hr 07/25/18 07/26/18 07/26/18 21:45 00:27 04:33 Temperature 98.0 F 98.0 F Pulse Rate 82 74 Respiratory 18 18 18 Rate Blood Pressure 137/65 128/72 O2 Sat by Pulse 98 95 98 Oximetry 07/26/18 07/26/18 07/26/18 07:26 08:16 08:52 Temperature 98.0 F Pulse Rate Respiratory 18 Rate Blood Pressure 133/67 139/78 146/61 O2 Sat by Pulse Oximetry 07/26/18 07/26/18 07/26/18 08:54 08:55 08:56 Temperature Pulse Rate Respiratory Rate Blood Pressure 117/87 124/94 140/95 O2 Sat by Pulse Oximetry 07/26/18 08:57 Temperature Pulse Rate Respiratory Rate Blood Pressure 155/86 O2 Sat by Pulse Oximetry - General Appearance General appearance: well-developed, well-nourished, appears stated age, other (not in distress) EENT: ATNC, PERRL, mucous membranes moist, hearing intact, vision intact Neck: supple Respiratory: Present: Clear to Ascultation Cardiology: regular, S1S2, no murmurs Gastrointestinal: normoactive bowel sounds, no tenderness, no distended Integumentary: no rash, warm and dry Neurologic: no focal deficit, no asterixis, alert and oriented x3 Musculoskeletal: other (no edema) - Lab 07/23/18 05:06 07/26/18 05:02 Most recent lab results Calcium 8.7 mg/dL (8.4-10.2) 07/26/18 05:02 Phosphorus 4.10 mg/dL (2.5-4.5) 07/24/18 06:29 Magnesium 1.80 mg/dL (1.7-2.3) 07/24/18 06:29 Urine Creatinine 114.2 mg/dL (0.1-20.0) H 07/23/18 17:24 Urine Sodium 35 mmol/L 07/23/18 17:24 Medications & Allergies - Medications Allergies/Adverse Reactions: Allergies No Known Allergies Allergy (Unverified 07/22/18 09:33) Home Medications: Home Medications Medication Instructions Recorded Confirmed Last Taken Type Simvastatin [Zocor] 20 mg PO QHS 07/25/18 07/25/18 Unknown History Active Medications: Generic Name Dose Route Start Last Admin Trade Name Freq PRN Reason Stop Dose Admin Acetaminophen 650 mg 07/22/18 16:04 Tylenol PO Q4H PRN Pain MILD(1-3)/Fever >100.5/CHAVEZ Albuterol 2.5 mg 07/22/18 16:04 Proventil IH Q4HRT PRN Shortness Of Breath Aspirin 81 mg 07/25/18 15:00 07/25/18 18:03 Halfprin Ec PO 81 mg QDAY SHANEKA Administration Atorvastatin Calcium 40 mg 07/25/18 22:00 07/25/18 21:33 Lipitor PO 40 mg QHS SHANEKA Administration Carvedilol 3.125 mg 07/25/18 22:00 07/25/18 21:33 Coreg PO 3.125 mg BID SHANEKA Administration Ceftriaxone Sodium 1 gm in 50 mls @ 100 mls/hr 07/26/18 10:00 Rocephin/Ns 1 Gm/50 Ml IV Q24HR [facility] Protocol Ondansetron HCl 4 mg 07/22/18 16:04 Zofran IV Q8H PRN Nausea And Vomiting Sodium Chloride 10 ml 07/22/18 16:04 Sodium Chloride Flush Syringe 10 Ml IV PRN PRN LINE FLUSH Sodium Chloride 10 ml 07/22/18 22:00 07/25/18 21:34 Sodium Chloride Flush Syringe 10 Ml IV 10 ml BID SHANEKA Administration
[2018-07-26] MEDS ORDERED: ROCEPHIN/NS 1 GM/50 ML 1 GM/50 ML BAG IV SCH (10:00)
[2018-07-26] MEDS ORDERED: K-DUR PO NR (11:08)
[2018-07-26] MEDS: COREG PO SCH (11:29)
[2018-07-26] MEDS: SODIUM CHLORIDE FLUSH SYRINGE 10 ML IV SCH (11:29)
[2018-07-26] MEDS: HALFPRIN EC PO SCH (11:29)
--- NOTE | 2018-07-26 12:04 | Progress Note ---
Assessment and Plan s/p lexiscan MPI stress test which showed medium sized fixed anterior and anteroapical defect, EF 38%. Optimize BP - increase Coreg. No ACEI/ARB at this time in setting of renal insufficiency. No current clinical evidence of acutely decompensated HF. Currently stable cardiac status. Pt may discharge home from cardiology standpoint. Follow up in our [place] office with Dr. Dietz on 08/05/2018 @ 3:15PM. The patient has been seen in conjunction with Dr. Dietz who agrees with the assessment and plan of care. - Patient Problems (1) Cardiomyopathy Current Visit: Yes Status: Chronic (2) Renal failure Current Visit: Yes Status: Acute (3) UTI (urinary tract infection) Current Visit: Yes Status: Acute Qualifiers: Encounter type: initial encounter (4) History of pneumonectomy Current Visit: Yes Status: Chronic Subjective Date of service: 07/26/18 Principal diagnosis: cmp Interval history: pt for stress test, no current cardiac complaints. Objective Last Vital Signs Temp 98.0 F 07/26/18 07:26 Pulse 74 07/26/18 04:33 Resp 18 07/26/18 07:26 BP 155/86 07/26/18 08:57 Pulse Ox 98 07/26/18 04:33 - Physical Examination General: No Apparent Distress HEENT: Positive: PERRL, Normocephaly, Mucus Membranes Moist Neck: Positive: neck supple, trachea midline Cardiac: Positive: Reg Rate and Rhythm, S1/S2 Lungs: Positive: Decreased Breath Sounds Neuro: Positive: Grossly Intact Abdomen: Positive: Soft. Negative: Tender Skin: Negative: Rash, Wound Musculoskeletal: No Pain Extremities: Absent: edema - Labs and Meds Cardiac Enzymes 07/26/18 Range/Units 05:04 CK-MB (CK-2) 2.5 (0.0-4.0) ng/mL Comprehensive Metabolic Panel 07/26/18 Range/Units 05:02 Sodium 141 (137-145) mmol/L Potassium 3.5 L (3.6-5.0) mmol/L Chloride 101.7 (98-107) mmol/L Carbon Dioxide 27 (22-30) mmol/L BUN 17 (7-17) mg/dL Creatinine 2.0 H (0.7-1.2) mg/dL Glucose 121 H (65-100) mg/dL Calcium 8.7 (8.4-10.2) mg/dL - Imaging and Cardiology EKG: report reviewed, image reviewed Echo: report reviewed ( EF 15-20%, LV mod dilated, mild LVH, LA mildly dilated, mod MR, mild TR) - EKG Sinus rhythms and dysrhythmias: sinus rhythm Repolarization changes or abnormalities: ST or T wave suggestive of ischemia
[2018-07-26] MEDS ORDERED: COREG PO SCH (12:10)
--- NOTE | 2018-07-26 13:42 | Discharge Summary ---
Providers - Providers Date of Admission: 07/22/18 16:04 Date of discharge: 07/26/18 Attending physician: NERY BLANCHARD 07/22/18 15:01 Consult to Physician [CONS] Urgent Comment: Consulting Provider: MANOJ LOUIS Physician Instructions: Reason For Exam: renal insufficency 07/24/18 09:25 Physical Therapy Evaluation and Treat [CONS] Routine Comment: Reason For Exam: weakness 07/25/18 10:53 Consult to Physician [CONS] Routine Comment: called office/ halley Consulting Provider: RADHA CASTILLO Physician Instructions: Reason For Exam: new onset CHF Primary care physician: SOCRATES ADLER Hospitalization Condition: Fair Hospital course: The patient is a 68 YO Female without any significant medical history who presented to [facility] ED for evaluation intermittent dyspnea on exertion for the past few days. Her creatinine was around 0.8 in Feb 2018 and was 3.1 on admission. Patient was diagnosed with acute renal failure and UTI and admitted for evaluation of Acute kidney injury. She was started on iv fluids. Also noted elevated BNP. 2d echo showed EF 15-20%. In addition patient had elevated lood glucose was diagnosed with diabetes mellitus with A1c 6.6. She was given iv fluids for BENNY due to vasomotor nephropathy. Cr improved from 3.1 down to 2.0. Shortness of breath resolved and she was discharged home on 07/26/18. Diabetes diagnosis was new, she received diabetic tesaching, was started on Metformin. Total time spent on discharge, 32 mins Disposition: - TO HOME OR SELFCARE - Discharge Diagnoses (1) BENNY (acute kidney injury) Status: Acute (2) Vasomotor nephropathy Status: Acute (3) New onset type 2 diabetes mellitus Status: Acute (4) UTI (urinary tract infection) Status: Acute Qualifiers: Encounter type: initial encounter (5) Cardiomyopathy Status: Chronic Core Measure Documentation - Palliative Care Palliative Care/ Comfort Measures: Not Applicable - Core Measures Any of the following diagnoses?: none Exam - Constitutional Vitals: Temp Pulse Resp BP Pulse Ox 98.0 F 76 18 155/86 98 07/26/18 07:26 07/26/18 10:00 07/26/18 10:00 07/26/18 08:57 07/26/18 04:33 Plan Activity: no restrictions Diet: low fat, low cholesterol, low salt, diabetic Additional Instructions: 1.Follow up with Dr. Adler in 1 week. 2.Follow up with Dr. Dietz on 08/05/18. 3.Follow up with Dr. Louis in 1 week. 3.Check fingerstick glucose twice daily and show log to your PCP. Follow up with: SOCRATES ADLER MD [Primary Care Provider] - 7 Days Prescriptions: Aspirin EC [Aspirin Enteric Coated TAB] 81 mg PO QDAY #30 tablet Carvedilol [Coreg] 6.25 mg PO BID #60 tablet metFORMIN [Glucophage] 500 mg PO QDAY #30 tab
--- NOTE | 2018-07-26 14:18 | Treadmill Report ---
LEXISCAN STRESS TEST REPORT REASON FOR STUDY: Cardiomyopathy. STRESS TEST PROTOCOL: The patient received 0.4 mg of Lexiscan intravenously over 10 seconds. Technetium-99m tetrofosmin was subsequently injected. Baseline ECG is normal sinus rhythm. T-wave abnormality. Consider inferior and anterolateral ischemia. Lexiscan EKG, no significant change from baseline. No chest pain. No arrhythmias. IMPRESSION: Nondiagnostic due to baseline ECG abnormalities. Nuclear imaging report to follow. JOB# [id number] TOM/NTS
[2018-07-26 14:59] VITALS: BP 143/93
--- NOTE | 2018-07-26 20:16 | Treadmill Report ---
THALLIUM REPORT REASON FOR STUDY: Cardiomyopathy. IMAGING PROTOCOL: The patient received 10.54 mCi of technetium-99m Tetrofosmin for rest imaging, and 31.55 mCi of Tc-99m Tetrofosmin for stress imaging. Imaging for all procedures was completed 30-90 minutes following the initial injection of Technetium 99m Tetrofosmin. SPECT imaging in the 180 degree arc was performed in the right anterior oblique projection. Computerized reconstruction of the images was performed for analysis. NUCLEAR IMAGING RESULTS: Normal left ventricular cavity size with no change from stress to rest. Distribution of radionuclide within the left ventricle revealed a medium-sized area of photo-induction involving the anterior and anteroapical region. The degree of photo-induction is moderate. Rest imaging does not show any significant improvement in this defect. Gated SPECT imaging revealed moderate global left ventricular systolic dysfunction with severe hypokinesis to akinesis of the apex, moderate septal hypokinesis, and severe lateral hypokinesis. The calculated left ventricular ejection fraction is 38%. IMPRESSION: Medium-sized fixed anterior and anteroapical defect. Moderate global LV systolic dysfunction with regional wall motion abnormalities. EF is 38%. These findings suggest prior infarction in the left anterior descending coronary artery territory. However, a cardiomyopathic process may also be present in this patient. No evidence of significant stress-induced ischemia. JOB# [id number] TOM/JOANNE
== END 2018-07-26 16:16 | disposition home or self-care (01) | DRG 682 ==
LOC: EDBD → ED 09:30 → 2B-ACE 16:04 → 4A 07-25 15:34
PROVIDERS: ADMIT Internal Medicine; ATTEND Internal Medicine
PROC: 3E0234Z Introduction of Serum, Toxoid and Vaccine into Muscle, Percutaneous Approach (ICD-10-PCS; principal; 2018-07-24)
DX: N17.0 Acute kidney failure with tubular necrosis (principal); I50.21 Acute systolic (congestive) heart failure; N39.0 Urinary tract infection, site not specified; I42.9 Cardiomyopathy, unspecified; I11.0 Hypertensive heart disease with heart failure; E11.9 Type 2 diabetes mellitus without complications; Z82.49 Family history of ischemic heart disease and other diseases of the circulatory system; Z90.710 Acquired absence of both cervix and uterus; Z23 Encounter for immunization
CPT/HCPCS: 36415; 71046; 74019; 76770; 78452; 78582; 80048; 80053; 80076; 81001; 82550; 82553; 82570; 83036; 83735; 83880; 84100; 84300; 84439; 84443; 84484; 85025; 85379; 90686; 90732; 93005; 93010; 93017; 93306; 94760; G0378; A9270-GY; A9502; A9540; A9558; J0696; J2785; J7030